=== PATIENT | female | born 1975 | race American Indian/Alaskan Native ===

== ENCOUNTER 2017-10-31 04:04 | Emergency (ER) | payer OTHER ==
[2017-10-31 04:54] VITALS: RESP 20; TEMP 97.7
[2017-10-31 05:03] VITALS: BP 127/76; PULSE 74
[2017-10-31 05:05] VITALS: O2SAT 98
--- NOTE | 2017-10-31 05:05 | C.PDOC ---
History Of Present Illness 42 year old female presents to the ED via EMS for evaluation of shortness of breath and chest tightness. Pt states she woke up from sleep congested with a dry cough followed by sudden chest tightness. Pt then became anxious and started hyperventilating which caused her to call 911. Patient was seen for this complaint at urgent care facility and was diagnosed with bronchitis and discharged with doxycycline. Patient states however that she now has myalgias, congestion, headache, and weakness. She denies shortness of breath at this time. Time Seen by Provider: 10/31/17 04:29 Chief Complaint (Nursing): Flu-like Symptoms History Per: Patient History/Exam Limitations: no limitations Onset/Duration Of Symptoms: Days Location Of Pain: Headache Associated Symptoms: Cough, Myalgias, Nasal Congestion Past Medical History Reviewed: Historical Data, Nursing Documentation, Vital Signs Vital Signs: Last Vital Signs Temp 97.7 F 10/31/17 04:23 Pulse 74 10/31/17 05:03 Resp 20 10/31/17 05:03 BP 127/76 10/31/17 05:03 Pulse Ox 98 10/31/17 05:37 - Medical History PMH: Anemia Surgical History: Tonsillectomy Family History: States: Unknown Family Hx - Social History Hx Tobacco Use: No Hx Alcohol Use: Yes Hx Substance Use: Yes - Immunization History Hx Tetanus Toxoid Vaccination: No Hx Influenza Vaccination: No Hx Pneumococcal Vaccination: No Review Of Systems Except As Marked, All Systems Reviewed And Found Negative. Constitutional: Positive for: Weakness. Negative for: Fever, Chills ENT: Positive for: Nose Congestion. Negative for: Ear Pain, Throat Pain Cardiovascular: Negative for: Chest Pain Respiratory: Positive for: Cough, Shortness of Breath (resolved ) Gastrointestinal: Negative for: Nausea, Vomiting, Abdominal Pain, Diarrhea Musculoskeletal: Positive for: Other (myalgias ) Skin: Negative for: Rash Neurological: Positive for: Headache Physical Exam - Physical Exam Appears: Well, No Acute Distress Skin: Normal Color, Warm, Dry Head: Atraumatic, Normacephalic Eye(s): bilateral: Normal Inspection, PERRL, EOMI Oral Mucosa: Moist Tongue: Normal Appearing Lips: Normal Appearing Throat: Normal Neck: Normal, Normal ROM, Supple Cardiovascular: Rhythm Regular Respiratory: Normal Breath Sounds Gastrointestinal/Abdominal: Soft, No Tenderness Back: Normal Inspection Extremity: Normal ROM, No Deformity Neurological/Psych: Oriented x3, Normal Speech ED Course And Treatment O2 Sat by Pulse Oximetry: 98 Pulse Ox Interpretation: Normal Progress Note: Tylenol given at triage, tamiflu initiated. Pt remains stable, active in ED. Stable vital signs. Pt advised to do good PO hydration and fever management and close observation at home with follow up with PMD in 1-2 days. Return precautions discussed and understood by pt who understands and agrees with plan Disposition Counseled Patient/Family Regarding: Diagnosis, Need For Followup, Rx Given - Disposition Referrals: [facility] [Outside] Disposition: HOME/ ROUTINE Disposition Time: 05:03 Condition: STABLE Additional Instructions: Increase PO fluids Take meds as directed Return to ER if worse Prescriptions: Cetirizine HCl [Zyrtec] 10 mg PO DAILY #20 capsule Ibuprofen [Motrin] 600 mg PO Q6H #20 tab Instructions: Viral Upper Respiratory Infection, Adult (DC) Forms: [employer] (Puerto Rican) - Clinical Impression Clinical Impression: Influenza-like illness - Scribe Statement The provider has reviewed the documentation as recorded by the Scribe (Patrick Juan)
== END 2017-10-31 05:20 | disposition home or self-care (01) ==
LOC: C.ER 04:04
DX: J11.1 Influenza due to unidentified influenza virus with other respiratory manifestations (principal)

== ENCOUNTER 2017-11-04 14:32 | Emergency (ER) | payer OTHER ==
[2017-11-04 14:36] VITALS: O2SAT 99
[2017-11-04 15:44] LABS: BASO # 0.1 K/uL (0.0-0.2); EOS # 0.1 K/uL (0.0-0.7); HEMOGLOBIN 13.4 g/dL (11.0-16.0); LYMPH # 2.5 K/uL (1.0-4.3); LYMPH % 41.8 % (20.0-40.0); MEAN CELL VOLUME 81.7 fL (81.0-99.0); MEAN CORPUSCULAR HEMOGLOBIN 26.7 pg (27.0-31.0); MEAN CORPUSCULAR HGB CONC 32.7 g/dL (33.0-37.0); MEAN PLATELET VOLUME 9.4 fL (7.2-11.7); MONO # 0.3 K/uL (0.0-0.8); MONO % 4.8 % (0.0-10.0); NEUT % 51.4 % (50.0-75.0); RBC 5.01 Mil/uL (3.80-5.20); RED CELL DISTRIBUTION WIDTH 14.4 % (11.5-14.5); WHITE BLOOD COUNT 5.9 K/uL (4.8-10.8)
--- NOTE | 2017-11-04 15:55 | RAD ---
Chest x-ray two views History: Shortness of breath. Comparison: 04/11/2016 Findings: Mild venous congestion. Bibasilar breast and nipple shadows. Heart size within normal limits. Degenerative changes in the spine. Impression: Mild venous congestion.
[2017-11-04 16:01] LABS: BLOOD UREA NITROGEN 11 mg/dL (7-17); CALCIUM 9.5 mg/dl (8.6-10.4); GFR AFRICAN-AMERICAN > 60; GFR NON-AFRICAN AMERICAN > 60
--- NOTE | 2017-11-04 16:44 | C.PDOC ---
History Of Present Illness 42 year old female presents to the ED for evaluation of flu-like symptoms which began around 1 week ago. Patient reports she was evaluated at an urgent care center 8 days ago and was diagnosed with Bronchitis. Patient states her symptoms persisted and she was evaluated in the ED 4 days ago and was diagnosed with Influenza. Today, patient reports feeling pain in her back and chest when coughing. Additionally, she feels anxious and thinks she may be developing "a different type of infection." Patient reports symptoms are associated with chills. She denies rash, hemoptysis, vomiting, diarrhea, abdominal pain, and recent travel. Time Seen by Provider: 11/04/17 15:11 Chief Complaint (Nursing): Shortness Of Breath History Per: Patient History/Exam Limitations: no limitations Onset/Duration Of Symptoms: Days Current Symptoms Are (Timing): Still Present Quality: "Pain" Exacerbating Factor(s): Coughing Current Respiratory Medications: See Home Med List Associated Symptoms: Chills, Productive Cough Additional History Per: Patient Past Medical History Reviewed: Historical Data, Nursing Documentation, Vital Signs Vital Signs: Last Vital Signs Temp 98.7 F 11/04/17 16:42 Pulse 85 11/04/17 16:42 Resp 18 11/04/17 16:42 BP 137/88 11/04/17 16:42 Pulse Ox 99 11/05/17 22:59 - Medical History PMH: Anemia Surgical History: Tonsillectomy Family History: States: Unknown Family Hx - Social History Hx Tobacco Use: No Hx Alcohol Use: Yes Hx Substance Use: Yes - Immunization History Hx Tetanus Toxoid Vaccination: No Hx Influenza Vaccination: No Hx Pneumococcal Vaccination: No Review Of Systems Constitutional: Positive for: Chills Cardiovascular: Positive for: Chest Pain Respiratory: Positive for: Cough Gastrointestinal: Negative for: Abdominal Pain, Diarrhea Musculoskeletal: Positive for: Back Pain Skin: Negative for: Rash Psych: Positive for: Anxiety Physical Exam - Physical Exam Appears: Non-toxic, Other (anxious appearing, tearful ) Skin: Normal Color, Warm, Dry Head: Atraumatic, Normacephalic Eye(s): bilateral: Normal Inspection Ear(s): Bilateral: Normal Nose: Normal, No Discharge Oral Mucosa: Moist Throat: Normal, No Erythema, No Exudate Neck: Supple Chest: Symmetrical, No Deformity, No Tenderness Cardiovascular: Rhythm Regular, No Murmur, Other (tachycardia noted ) Respiratory: Normal Breath Sounds, No Rales, No Rhonchi, No Wheezing Extremity: Normal ROM, Capillary Refill (less than 2 seconds ) Neurological/Psych: Oriented x3, Normal Speech, Normal Cognition ED Course And Treatment - Laboratory Results Result Diagrams: 11/04/17 15:40 11/04/17 15:40 ECG: Interpreted By Me, Viewed By Me ECG Rhythm: Sinus Rhythm Interpretation Of ECG: Sinus Rhythm at rate 98bpm with PACs. No ST/T wave changes. Rate From EC O2 Sat by Pulse Oximetry: 99 (on RA) Pulse Ox Interpretation: Normal Medical Decision Making Medical Decision Making: Progress: Bloodwork, CXR and EKG ordered and reviewed. D dimer is negative. Labs are normal. CXR is normal. On re-exam, the patient reports improvement of symptoms. Lungs are CTA, heart is RRR, abdomen is soft, non-tender and tolerating PO well. Ambulatory in the ED with steady gait. Follow up with the medical doctor with 1-2 days. return if worsened. Disposition - Disposition Referrals: Janell Gonzáles MD [Staff Provider] - Disposition: HOME/ ROUTINE Disposition Time: 16:36 Condition: GOOD Additional Instructions: Follow up with the medical doctor within 1-2 days. Return if worsened. Instructions: Viral Upper Respiratory Infection, Adult (DC) Forms: [employer] (Filipino), Work Excuse - POA Present On Arrival: None - Clinical Impression Clinical Impression: Viral respiratory illness, Anxiety - PA / UPPER AND BOTTOM LACER HAND / Resident Statement MD/DO has reviewed & agrees with the documentation as recorded. - Scribe Statement The provider has reviewed the documentation as recorded by the Scribe (Abigail Aceevdo) All medical record entries made by the Scribe were at my direction and personally dictated by me. I have reviewed the chart and agree that the record accurately reflects my personal performance of the history, physical exam, medical decision making, and the department course for this patient. I have also personally directed, reviewed, and agree with the discharge instructions and disposition.
[2017-11-04 16:45] VITALS: BP 137/88; PULSE 85; RESP 18; TEMP 98.7
== END 2017-11-04 16:48 | disposition home or self-care (01) ==
LOC: C.ER 14:32
DX: F41.9 Anxiety disorder, unspecified (principal); J98.8 Other specified respiratory disorders; B97.89 Other viral agents as the cause of diseases classified elsewhere

== ENCOUNTER 2018-10-29 01:22 | Emergency (ER) | payer OTHER ==
[2018-10-29 01:39] VITALS: BMI 30.4
[2018-10-29 01:43] VITALS: BP 145/98; PULSE 89; RESP 19; TEMP 98.6; O2SAT 96
--- NOTE | 2018-10-29 02:02 | C.PDOC ---
History Of Present Illness 43 year old female presents to the ER with right knee pain. Patient is s/p right knee meniscus surgery on 06/14/18, she states the pain has not improved much since surgery. She also reports having a headache yesterday with generalized body aches and malaise, blood pressure reading at home has been high. Denies diarrhea, chills, or URI. Time Seen by Provider: 10/29/18 01:59 Chief Complaint (Nursing): Lower Extremity Problem/Injury History Per: Patient History/Exam Limitations: no limitations Onset/Duration Of Symptoms: Days Current Symptoms Are (Timing): Still Present Recent travel outside of the [place]: No Past Medical History Reviewed: Historical Data, Nursing Documentation, Vital Signs Vital Signs: Last Vital Signs Temp 98.6 F 10/29/18 01:38 Pulse 89 10/29/18 01:38 Resp 19 10/29/18 01:38 BP 145/98 H 10/29/18 01:38 Pulse Ox 96 10/29/18 01:38 - Medical History PMH: Anemia Surgical History: Tonsillectomy Family History: States: Unknown Family Hx - Social History Hx Tobacco Use: No Hx Alcohol Use: Yes Hx Substance Use: Yes - Immunization History Hx Tetanus Toxoid Vaccination: No Hx Influenza Vaccination: No Hx Pneumococcal Vaccination: No Review Of Systems Constitutional: Positive for: Malaise. Negative for: Fever, Chills ENT: Negative for: Nose Discharge, Nose Congestion, Throat Pain Gastrointestinal: Negative for: Diarrhea Musculoskeletal: Positive for: Other (Right knee pain, generalized body aches) Neurological: Positive for: Headache. Negative for: Weakness, Numbness Physical Exam - Physical Exam Appears: Non-toxic Skin: Normal Color, Warm, Dry Head: Atraumatic, Normacephalic Eye(s): bilateral: Normal Inspection, PERRL, EOMI Oral Mucosa: Moist Chest: Symmetrical, No Deformity Cardiovascular: Rhythm Regular Respiratory: Normal Breath Sounds, No Rales, No Rhonchi, No Wheezing Extremity: Capillary Refill (<2 seconds), Other (Right knee slight limited ROM, no erythema, no swelling, no warmth, no effusion) Pulses: Left Dorsalis Pedis: Normal, Right Dorsalis Pedis: Normal Neurological/Psych: Oriented x3, Normal Speech, Normal Motor, Normal Sensation Gait: Steady ED Course And Treatment O2 Sat by Pulse Oximetry: 96 (Room air) Pulse Ox Interpretation: Normal Progress Note: Toradol administered. Blood pressure elevated, patient with no past Hx of HTN, she states she recently had blood work done by PMD, advised to follow up with PMD for lab results and further evaluation. Patient ambulatory, in no acute distress, will discharge home and will continue PO NSAIDS or tylenol. Disposition Counseled Patient/Family Regarding: Diagnosis, Need For Followup - Disposition Referrals: Kary De Lóen MD [Medical Doctor] - Disposition: HOME/ ROUTINE Disposition Time: 02:00 Condition: STABLE Additional Instructions: Please follow up with your PMD- Call tomorrow for blood results Continue tylenol and motrin for pain Leg elevation Alternate cold to warm compress Return to ER if worse Instructions: Muscle and Bone Pain (DC), Knee Pain (DC) Forms: [employer] (Polish) - Clinical Impression Clinical Impression: Myalgia and myositis, Knee pain, right, Elevated BP without diagnosis of hypertension - PA / ALTERATIONS EXPERT / Resident Statement MD/DO has reviewed & agrees with the documentation as recorded. - Scribe Statement The provider has reviewed the documentation as recorded by the Scribdania Ball All medical record entries made by the Jeromyibdania were at my direction and personally dictated by me. I have reviewed the chart and agree that the record accurately reflects my personal performance of the history, physical exam, medical decision making, and the department course for this patient. I have also personally directed, reviewed, and agree with the discharge instructions and disposition.
== END 2018-10-29 02:14 | disposition home or self-care (01) ==
LOC: C.ER 01:22
DX: M25.561 Pain in right knee (principal); M79.10 Myalgia, unspecified site; R03.0 Elevated blood-pressure reading, without diagnosis of hypertension; M60.9 Myositis, unspecified
CPT/HCPCS: 96372; 99285; J1885